=== PATIENT | female | born 1975 | race Caucasian/White ===

== ENCOUNTER 2018-12-13 13:20 | Emergency (ER) | payer OTHER ==
[2018-12-13 13:32] VITALS: BP 146/89; PULSE 99; RESP 18; TEMP 98.6
--- NOTE | 2018-12-13 14:18 | XR ---
Right knee HISTORY: Right knee pain, trauma 3 views the right knee Bone mineralization, joint spaces and alignment are maintained. No joint effusion. IMPRESSION: No fracture or dislocation is evident.
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
== END 2018-12-13 15:10 | disposition home or self-care (01) ==
LOC: EC 13:20
DX: M25.561 Pain in right knee (principal); S80.02XA Contusion of left knee, initial encounter; M79.89 Other specified soft tissue disorders; F17.200 Nicotine dependence, unspecified, uncomplicated; V68.4XXA Person boarding or alighting a heavy transport vehicle injured in noncollision transport accident, initial encounter; Y93.39 Activity, other involving climbing, rappelling and jumping off; Y92.410 Unspecified street and highway as the place of occurrence of the external cause
CPT/HCPCS: 73562; 99283; L1830